=== PATIENT | male | born 1995 | race Caucasian/White ===

== ENCOUNTER → 2016-07-01 | Outpatient (CLI) | payer OTHER ==
--- NOTE | 2016-07-01 14:22 | Diagnostic Imaging Report ---
Ultrasound of the spleen. INDICATION: Mononucleosis. Splenomegaly. FINDINGS: The spleen is 13.6 x 4.8 x 5.2 cm, mildly enlarged. It appears homogeneous with no focal lesion. No adjacent fluid or subcapsular hematoma. IMPRESSION: Mild splenomegaly. Dictated by: Dictated on workstation # [id number]
== END ==
LOC: RAD 13:57
DX: B27.90 Infectious mononucleosis, unspecified without complication (principal); R16.1 Splenomegaly, not elsewhere classified
CPT/HCPCS: 76705